=== PATIENT | male | born 1950 | race Caucasian/White ===

== ENCOUNTER 2016-09-20 20:41 | Inpatient (IN) | payer MEDICAID ==
[~2016-09-20] VITALS: Ht 177.8 cm; Wt 81.1 kg
[~2016-09-20 20:41] MED LIST: ASPI-496 PO; CARV6.252 PO; CLOP75TA22 PO; IBUP200T5 PO; LISI-167 PO; NITR0.4T SL; Will bring list DOS
[2016-09-20] MEDS ORDERED: FURO80TA77 PO (20:54)
[2016-09-20] MEDS ORDERED: SODIUM CHLORIDE 0.9% 1,000ML IVBOLUS ONE (21:30)
[2016-09-20] MEDS ORDERED: MORPHINE SULFATE 4 MG/ML, 1ML IV PRN (21:30)
[2016-09-20] MEDS ORDERED: LORazepam 2 MG/ML, 1ML ONE (21:44)
[2016-09-20] MEDS ORDERED: DIPHENHYDRAMINE 50 MG/ML, 1ML ONE (21:44)
[2016-09-20] MEDS ORDERED: HALOPERIDOL 5 MG/ML ONE (21:44)
[2016-09-20] MEDS ORDERED: LORazepam 2 MG/ML, 1ML IM ONE (22:00)
[2016-09-20] MEDS ORDERED: HALOPERIDOL 5 MG/ML IM ONE (22:00)
[2016-09-20] MEDS ORDERED: DIPHENHYDRAMINE 50 MG/ML, 1ML IM ONE (22:00)
[2016-09-20] MEDS ORDERED: VANCOMYCIN PER PHARMACY MC PRN (22:00)
[2016-09-20 22:06] LABS: DIFF TOTAL CELLS COUNTED 100 CELL DIFF
[2016-09-20 22:16] LABS: ASPARTATE AMINO TRANSFERASE 17 U/L (15-37); BLOOD UREA NITROGEN 99 mg/dL (7-18)
[2016-09-20] MEDS ORDERED: PHARMACOKINETIC CONSULTATION MC PRN (22:30)
[2016-09-20] MEDS ORDERED: VANCOMYCIN 1,400 MG in SODIUM CHLORIDE 0.9% 250 ML IV ONE (22:30)
[2016-09-20] MEDS ORDERED: PHARMACOKINETIC MONITORING MC PRN (22:30)
[2016-09-20 22:32] LABS: VERIFY COUNTS? YES
[2016-09-20] MEDS ORDERED: KETAMINE 10 MG/ML, 20ML IV ONE (23:00)
[2016-09-20] MEDS ORDERED: KETAMINE 10 MG/ML, 20ML ONE (23:03)
[2016-09-20] MEDS ORDERED: PIPERACILLIN/TAZO 3.375 GM in SODIUM CHLORIDE 0.9% 50 ML IV SCH (23:30)
[2016-09-20] MEDS ORDERED: INSULIN REGULAR 100 UNITS/ML, 3ML VIAL IVPush ONE (23:30)
[2016-09-20] MEDS ORDERED: CLINDAMYCIN PMX 900MG/50ML 50 ML IV SCH (23:30)
[2016-09-20] MEDS ORDERED: DEXTROSE 50%, 50ML SYRINGE IVPush ONE (23:30)
[2016-09-20] MEDS ORDERED: DEXTROSE 50%, 50ML VIAL ONE (23:41)
[2016-09-20] MEDS ORDERED: INSULIN REGULAR 100 UNITS/ML, 3ML VIAL ONE (23:41)
[2016-09-21] MEDS ORDERED: CLINDAMYCIN PMX 900MG/50ML 50 ML ONE (00:33)
[2016-09-21] MEDS ORDERED: BISACODYL 10 MG SUPP PR PRN (01:00)
[2016-09-21] MEDS ORDERED: ENALAPRILAT 1.25 MG/ML, 2ML IVPush PRN (01:00)
[2016-09-21] MEDS ORDERED: NITROGLYCERIN 0.4 MG BOTTLE (25 TABS) SL PRN (01:00)
[2016-09-21] MEDS ORDERED: ONDANSETRON 2MG/ML, 2ML IVPush PRN (01:00)
[2016-09-21] MEDS ORDERED: POLYETHYLENE GLYCOL 17 GM PACKET PO PRN (01:00)
[2016-09-21] MEDS ORDERED: DOCUSATE 100 MG CAPSULE PO PRN (01:00)
[2016-09-21] MEDS ORDERED: VANCOMYCIN PER PHARMACY MC PRN (01:30)
[2016-09-21 01:38] LABS: DAU SCREEN DISCLAIMER
[2016-09-21] MEDS: SODIUM CHLORIDE 0.9% 1,000 ML IV SCH ×4 (02:14→23:58)
[2016-09-21] MEDS ORDERED: SODIUM CHLORIDE 0.9% 1,000ML IVBOLUS ONE (03:00)
[2016-09-21] MEDS ORDERED: ALBUTEROL/IPRATROPIUM 2.5MG/0.5MG, 3 ML NPPB PRN (03:30)
[2016-09-21 04:05] VITALS: BP 116/53
[2016-09-21 04:36] VITALS: BP 116/53
[2016-09-21] MEDS: PIPERACILLIN/TAZO 2.25 GM in SODIUM CHLORIDE 0.9% 50 ML IV SCH ×3 (06:44→18:34)
[2016-09-21] MEDS ORDERED: PROPOFOL 10 MG/ML, 20ML ONE (08:04)
[2016-09-21] MEDS ORDERED: PHENYLEPHRINE 10 MG/ML ONE (08:04)
[2016-09-21] MEDS ORDERED: NEOSTIGMINE 1 MG/ML, 10ML ONE (08:04)
[2016-09-21] MEDS ORDERED: ROCURONIUM 10 MG/ML ONE (08:04)
[2016-09-21] MEDS ORDERED: ONDANSETRON 2MG/ML, 2ML ONE (08:04)
[2016-09-21] MEDS ORDERED: GLYCOPYRROLATE 0.2MG/1ML ONE (08:04)
[2016-09-21] MEDS ORDERED: FENTANYL PF 250 MCG/5ML ONE (08:04)
[2016-09-21] MEDS: FLUTICASONE/VILANTEROL 100-25MCG/INH INH SCH (09:00)
[2016-09-22] MEDS: PIPERACILLIN/TAZO 2.25 GM in SODIUM CHLORIDE 0.9% 50 ML IV SCH ×2 (00:05→05:49)
[2016-09-22] MEDS: OXYcodone IR 5MG TABLET PO PRN ×2 (00:05→16:59)
[2016-09-22 04:24] VITALS: BP 118/68
[2016-09-22 04:45] LABS: ASPARTATE AMINO TRANSFERASE 28 U/L (15-37); BLOOD UREA NITROGEN 39 mg/dL (7-18)
[2016-09-22] MEDS: SODIUM CHLORIDE 0.9% 1,000 ML IV SCH ×2 (05:00→15:31)
[2016-09-22] MEDS: ACETAMINOPHEN 325 MG TABLET PO PRN (05:49)
[2016-09-22] MEDS ORDERED: PIPERACILLIN/TAZO 3.375 GM in SODIUM CHLORIDE 0.9% 50 ML IV SCH (07:30)
[2016-09-22 08:10] VITALS: BP 109/63
[2016-09-22] MEDS: FLUTICASONE/VILANTEROL 100-25MCG/INH INH SCH (11:15)
[2016-09-22] MEDS ORDERED: NICOTINE 21 MG/24 HR PATCH.TD24 TD SCH (13:30)
[2016-09-22 13:46] VITALS: BP 100/54
[2016-09-22] MEDS: ENOXAPARIN 40 MG/0.4 ML SQ SCH (14:23)
[2016-09-22] MEDS: ERTAPENEM 1 GM in SODIUM CHLORIDE 0.9% 50 ML IV SCH (15:31)
[2016-09-22 20:32] VITALS: BP 116/59
[2016-09-22] MEDS ORDERED: VANCOMYCIN 1,400 MG in SODIUM CHLORIDE 0.9% 250 ML IV SCH (22:00)
[2016-09-23 04:16] VITALS: BP 126/62
[2016-09-23 05:08] LABS: BLOOD UREA NITROGEN 24 mg/dL (7-18)
[2016-09-23 08:05] VITALS: BP 115/76
[2016-09-23] MEDS: OXYcodone IR 5MG TABLET PO PRN ×3 (08:22→21:33)
[2016-09-23] MEDS: FLUTICASONE/VILANTEROL 100-25MCG/INH INH SCH (08:22)
[2016-09-23] MEDS ORDERED: CLOPIDOGREL 75 MG TABLET PO SCH (09:00)
[2016-09-23 12:30] VITALS: BP 121/70
[2016-09-23] MEDS: ENOXAPARIN 40 MG/0.4 ML SQ SCH (15:25)
[2016-09-23] MEDS: ERTAPENEM 1 GM in SODIUM CHLORIDE 0.9% 50 ML IV SCH (15:31)
[2016-09-23 19:28] VITALS: BP 133/68
[2016-09-24 01:10] VITALS: BP 126/62
[2016-09-24 06:17] LABS: BLOOD UREA NITROGEN 15 mg/dL (7-18)
[2016-09-24 10:12] VITALS: BP 116/64
[2016-09-24] MEDS: FLUTICASONE/VILANTEROL 100-25MCG/INH INH SCH (10:19)
[2016-09-24 14:10] VITALS: BP 118/67
[2016-09-24] MEDS: ENOXAPARIN 40 MG/0.4 ML SQ SCH (15:27)
[2016-09-24] MEDS: OXYcodone IR 5MG TABLET PO PRN (15:27)
[2016-09-24] MEDS: ERTAPENEM 1 GM in SODIUM CHLORIDE 0.9% 50 ML IV SCH (16:52)
[2016-09-24 19:28] VITALS: BP 125/59
[2016-09-25] MEDS: OXYcodone IR 5MG TABLET PO PRN ×4 (01:12→21:29)
[2016-09-25 01:13] VITALS: BP 111/58
[2016-09-25] MEDS: ACETAMINOPHEN 325 MG TABLET PO PRN (04:30)
[2016-09-25 05:18] LABS: BLOOD UREA NITROGEN 14 mg/dL (7-18)
[2016-09-25 07:46] VITALS: BP 122/66
[2016-09-25] MEDS: FLUTICASONE/VILANTEROL 100-25MCG/INH INH SCH (08:32)
[2016-09-25 12:59] VITALS: BP 132/60
[2016-09-25] MEDS: ENOXAPARIN 40 MG/0.4 ML SQ SCH (14:58)
[2016-09-25] MEDS: ERTAPENEM 1 GM in SODIUM CHLORIDE 0.9% 50 ML IV SCH (14:58)
[2016-09-25 18:30] VITALS: BP 113/65
[2016-09-25 23:14] VITALS: BP 132/72
[2016-09-26 07:38] VITALS: BP 123/73
[2016-09-26] MEDS: FLUTICASONE/VILANTEROL 100-25MCG/INH INH SCH (09:52)
[2016-09-26] MEDS: OXYcodone IR 5MG TABLET PO PRN ×3 (10:33→20:00)
[2016-09-26 14:15] VITALS: BP 141/68
[2016-09-26] MEDS: ENOXAPARIN 40 MG/0.4 ML SQ SCH (14:25)
[2016-09-26] MEDS: ERTAPENEM 1 GM in SODIUM CHLORIDE 0.9% 50 ML IV SCH (16:00)
[2016-09-26 18:26] VITALS: BP 133/58
[2016-09-27 00:09] VITALS: BP 105/56
[2016-09-27] MEDS: OXYcodone IR 5MG TABLET PO PRN ×5 (01:35→22:30)
[2016-09-27] MEDS: ACETAMINOPHEN 325 MG TABLET PO PRN (04:23)
[2016-09-27 06:39] VITALS: BP 131/56
[2016-09-27] MEDS: FLUTICASONE/VILANTEROL 100-25MCG/INH INH SCH (08:54)
[2016-09-27] MEDS: ENOXAPARIN 40 MG/0.4 ML SQ SCH (13:41)
[2016-09-27 14:30] VITALS: BP 118/61
[2016-09-27] MEDS: ERTAPENEM 1 GM in SODIUM CHLORIDE 0.9% 50 ML IV SCH (14:57)
[2016-09-27 19:47] VITALS: BP 129/68
[2016-09-28 03:15] VITALS: BP 111/53
[2016-09-28 06:35] VITALS: BP 135/65
[2016-09-28] MEDS: OXYcodone IR 5MG TABLET PO PRN ×4 (08:35→22:03)
[2016-09-28] MEDS: FLUTICASONE/VILANTEROL 100-25MCG/INH INH SCH (08:35)
[2016-09-28 12:44] VITALS: BP 140/62
[2016-09-28] MEDS: ENOXAPARIN 40 MG/0.4 ML SQ SCH (13:34)
[2016-09-28] MEDS: ERTAPENEM 1 GM in SODIUM CHLORIDE 0.9% 50 ML IV SCH (15:09)
[2016-09-28 19:08] VITALS: BP 116/64
[2016-09-29 01:19] VITALS: BP 132/67
[2016-09-29] MEDS: OXYcodone IR 5MG TABLET PO PRN ×4 (02:06→21:23)
[2016-09-29 07:47] VITALS: BP 144/49
[2016-09-29] MEDS: FLUTICASONE/VILANTEROL 100-25MCG/INH INH SCH (10:26)
[2016-09-29 13:20] VITALS: BP 124/60
[2016-09-29] MEDS: ERTAPENEM 1 GM in SODIUM CHLORIDE 0.9% 50 ML IV SCH (17:28)
[2016-09-29] MEDS: ENOXAPARIN 40 MG/0.4 ML SQ SCH (17:28)
[2016-09-29 19:20] VITALS: BP 132/67
[2016-09-30 01:18] VITALS: BP 126/64
[2016-09-30 07:50] VITALS: BP 104/59
[2016-09-30] MEDS: OXYcodone IR 5MG TABLET PO PRN ×3 (10:31→22:13)
[2016-09-30] MEDS: FLUTICASONE/VILANTEROL 100-25MCG/INH INH SCH (10:31)
[2016-09-30] MEDS: ERTAPENEM 1 GM in SODIUM CHLORIDE 0.9% 50 ML IV SCH (17:18)
[2016-09-30] MEDS: ENOXAPARIN 40 MG/0.4 ML SQ SCH (17:18)
[2016-09-30] MEDS ORDERED: SODIUM CHLORIDE 0.9% 500 ML IV ONE (19:00)
[2016-09-30 20:25] VITALS: BP 143/70
[2016-10-01 02:23] VITALS: BP 111/64
[2016-10-01] MEDS: OXYcodone IR 5MG TABLET PO PRN ×2 (06:04→14:12)
[2016-10-01 06:43] VITALS: BP 101/54
[2016-10-01] MEDS: FLUTICASONE/VILANTEROL 100-25MCG/INH INH SCH (09:34)
[2016-10-01 13:41] VITALS: BP 162/71
[2016-10-01] MEDS: ENOXAPARIN 40 MG/0.4 ML SQ SCH (14:12)
[2016-10-01] MEDS: ERTAPENEM 1 GM in SODIUM CHLORIDE 0.9% 50 ML IV SCH (18:21)
[2016-10-01 20:22] VITALS: BP 132/68
[2016-10-02 03:27] VITALS: BP 129/96
[2016-10-02 07:53] VITALS: BP 109/60
[2016-10-02] MEDS: FLUTICASONE/VILANTEROL 100-25MCG/INH INH SCH (09:00)
[2016-10-02 12:59] VITALS: BP 119/68
[2016-10-02] MEDS: AMPICILLIN 500 MG in SODIUM CHLORIDE 0.9% 50 ML IV SCH ×2 (14:15→18:15)
[2016-10-02] MEDS: ENOXAPARIN 40 MG/0.4 ML SQ SCH (14:30)
[2016-10-02] MEDS: LEVOFLOXACIN/PMX 500MG/100ML 100 ML IV SCH (15:50)
[2016-10-02] MEDS: OXYcodone IR 5MG TABLET PO PRN (18:15)
[2016-10-02 20:31] VITALS: BP 144/61
[2016-10-03] MEDS: AMPICILLIN 500 MG in SODIUM CHLORIDE 0.9% 50 ML IV SCH ×5 (00:14→23:46)
[2016-10-03 02:17] VITALS: BP 119/63
[2016-10-03 06:32] VITALS: BP 116/63
[2016-10-03] MEDS: FLUTICASONE/VILANTEROL 100-25MCG/INH INH SCH (07:28)
[2016-10-03] MEDS: OXYcodone IR 5MG TABLET PO PRN ×2 (08:09→18:30)
[2016-10-03] MEDS: morphine SULFATE 10 MG/ML, 1ML IVPush PRN (11:01)
[2016-10-03 13:24] VITALS: BP 146/71
[2016-10-03] MEDS: LEVOFLOXACIN/PMX 500MG/100ML 100 ML IV SCH (13:27)
[2016-10-03] MEDS: ENOXAPARIN 40 MG/0.4 ML SQ SCH (14:30)
[2016-10-03] MEDS: ASPIRIN 81 MG TABLET CHEW PO SCH (14:58)
[2016-10-03 19:22] VITALS: BP 108/57
[2016-10-04 01:41] VITALS: BP 139/63
[2016-10-04] MEDS: AMPICILLIN 500 MG in SODIUM CHLORIDE 0.9% 50 ML IV SCH ×2 (05:52→14:12)
[2016-10-04 08:00] VITALS: BP 135/78
[2016-10-04] MEDS: FLUTICASONE/VILANTEROL 100-25MCG/INH INH SCH (09:11)
[2016-10-04] MEDS: ASPIRIN 81 MG TABLET CHEW PO SCH (09:11)
[2016-10-04] MEDS: OXYcodone IR 5MG TABLET PO PRN ×3 (09:11→22:33)
[2016-10-04 13:42] VITALS: BP 146/79
[2016-10-04] MEDS: ENOXAPARIN 40 MG/0.4 ML SQ SCH (14:30)
[2016-10-04] MEDS: LEVOFLOXACIN/PMX 500MG/100ML 100 ML IV SCH (15:31)
[2016-10-04] MEDS: METRONIDAZOLE PMX 500MG/100ML 100 ML IV SCH (18:00)
[2016-10-04 19:48] VITALS: BP 130/68
[2016-10-05 01:52] VITALS: BP 144/72
[2016-10-05] MEDS: METRONIDAZOLE PMX 500MG/100ML 100 ML IV SCH (02:07)
[2016-10-05] MEDS: OXYcodone IR 5MG TABLET PO PRN ×4 (05:30→22:50)
[2016-10-05 07:51] VITALS: BP 116/72
[2016-10-05] MEDS: ASPIRIN 81 MG TABLET CHEW PO SCH (08:25)
[2016-10-05] MEDS: FLUTICASONE/VILANTEROL 100-25MCG/INH INH SCH (08:25)
[2016-10-05] MEDS: AMPICILLIN/SULBACTAM 3 GM in SODIUM CHLORIDE 0.9% 100 ML IV SCH ×3 (08:25→20:13)
[2016-10-05 08:28] LABS: BLOOD UREA NITROGEN 23 mg/dL (7-18)
[2016-10-05] MEDS: ENOXAPARIN 40 MG/0.4 ML SQ SCH (13:02)
[2016-10-05 14:54] VITALS: BP 117/60
[2016-10-05 19:37] VITALS: BP 124/61
[2016-10-06 01:17] VITALS: BP 131/63
[2016-10-06] MEDS: AMPICILLIN/SULBACTAM 3 GM in SODIUM CHLORIDE 0.9% 100 ML IV SCH ×4 (02:08→19:50)
[2016-10-06] MEDS: OXYcodone IR 5MG TABLET PO PRN ×3 (03:46→19:50)
[2016-10-06 06:55] VITALS: BP 125/69
[2016-10-06] MEDS: ASPIRIN 81 MG TABLET CHEW PO SCH (07:44)
[2016-10-06] MEDS: FLUTICASONE/VILANTEROL 100-25MCG/INH INH SCH (07:45)
[2016-10-06] MEDS: morphine SULFATE 10 MG/ML, 1ML IVPush PRN (13:27)
[2016-10-06] MEDS: ENOXAPARIN 40 MG/0.4 ML SQ SCH (14:25)
[2016-10-06 14:41] VITALS: BP 123/63
[2016-10-06 19:47] VITALS: BP 139/70
[2016-10-07] MEDS: OXYcodone IR 5MG TABLET PO PRN ×5 (00:19→21:03)
[2016-10-07 02:21] VITALS: BP 148/76
[2016-10-07] MEDS: AMPICILLIN/SULBACTAM 3 GM in SODIUM CHLORIDE 0.9% 100 ML IV SCH ×4 (02:38→20:00)
[2016-10-07 06:48] VITALS: BP 139/68
[2016-10-07] MEDS: ASPIRIN 81 MG TABLET CHEW PO SCH (07:29)
[2016-10-07] MEDS: FLUTICASONE/VILANTEROL 100-25MCG/INH INH SCH (07:29)
[2016-10-07 13:24] VITALS: BP 118/64
[2016-10-07] MEDS: ENOXAPARIN 40 MG/0.4 ML SQ SCH (13:52)
[2016-10-07 18:46] VITALS: BP 123/64
[2016-10-08 01:23] VITALS: BP 138/69
[2016-10-08] MEDS: OXYcodone IR 5MG TABLET PO PRN ×5 (01:28→22:55)
[2016-10-08] MEDS: AMPICILLIN/SULBACTAM 3 GM in SODIUM CHLORIDE 0.9% 100 ML IV SCH ×2 (01:28→07:16)
[2016-10-08] MEDS: ASPIRIN 81 MG TABLET CHEW PO SCH (07:15)
[2016-10-08] MEDS: FLUTICASONE/VILANTEROL 100-25MCG/INH INH SCH (07:16)
[2016-10-08 07:44] VITALS: BP 140/72
[2016-10-08] MEDS: morphine SULFATE 10 MG/ML, 1ML IVPush PRN (11:32)
[2016-10-08 14:20] VITALS: BP 108/53
[2016-10-08] MEDS: AMOXICILLIN/CLAV 500-125MG TABLET PO SCH ×2 (14:29→22:55)
[2016-10-08] MEDS: ENOXAPARIN 40 MG/0.4 ML SQ SCH (14:30)
[2016-10-08 19:20] VITALS: BP 128/70
[2016-10-09 01:00] VITALS: BP 130/70
[2016-10-09] MEDS: OXYcodone IR 5MG TABLET PO PRN ×4 (03:33→22:17)
[2016-10-09] MEDS: AMOXICILLIN/CLAV 500-125MG TABLET PO SCH ×3 (06:18→22:19)
[2016-10-09 07:29] VITALS: BP 125/71
[2016-10-09] MEDS: ASPIRIN 81 MG TABLET CHEW PO SCH (10:11)
[2016-10-09] MEDS: FLUTICASONE/VILANTEROL 100-25MCG/INH INH SCH (10:11)
[2016-10-09 13:33] VITALS: BP 147/66
[2016-10-09] MEDS: ENOXAPARIN 40 MG/0.4 ML SQ SCH ×2 (14:30→14:46)
[2016-10-09 20:01] VITALS: BP 142/66
[2016-10-10 01:07] VITALS: BP 134/66
[2016-10-10] MEDS: AMOXICILLIN/CLAV 500-125MG TABLET PO SCH ×3 (06:06→21:41)
[2016-10-10 07:39] VITALS: BP 135/60
[2016-10-10] MEDS: OXYcodone IR 5MG TABLET PO PRN ×2 (08:39→19:20)
[2016-10-10] MEDS: FLUTICASONE/VILANTEROL 100-25MCG/INH INH SCH (08:39)
[2016-10-10] MEDS: ASPIRIN 81 MG TABLET CHEW PO SCH (08:39)
[2016-10-10] MEDS: morphine SULFATE 10 MG/ML, 1ML IVPush PRN (11:48)
[2016-10-10 13:55] VITALS: BP 133/67
[2016-10-10] MEDS: ENOXAPARIN 40 MG/0.4 ML SQ SCH (14:28)
[2016-10-10 18:37] VITALS: BP 126/71
[2016-10-11] MEDS: OXYcodone IR 5MG TABLET PO PRN ×5 (00:10→19:34)
[2016-10-11 04:08] VITALS: BP 117/67
[2016-10-11] MEDS: AMOXICILLIN/CLAV 500-125MG TABLET PO SCH ×3 (05:45→22:05)
[2016-10-11 07:22] VITALS: BP 132/70
[2016-10-11] MEDS: FLUTICASONE/VILANTEROL 100-25MCG/INH INH SCH (07:50)
[2016-10-11] MEDS: ASPIRIN 81 MG TABLET CHEW PO SCH (07:51)
[2016-10-11 14:12] VITALS: BP 121/70
[2016-10-11] MEDS: ENOXAPARIN 40 MG/0.4 ML SQ SCH (14:30)
[2016-10-11 19:13] VITALS: BP 120/67
[2016-10-12 01:54] VITALS: BP 112/62
[2016-10-12] MEDS: AMOXICILLIN/CLAV 500-125MG TABLET PO SCH ×3 (05:24→22:06)
[2016-10-12] MEDS: OXYcodone IR 5MG TABLET PO PRN ×4 (05:24→21:12)
[2016-10-12 05:39] LABS: BLOOD UREA NITROGEN 31 mg/dL (7-18)
[2016-10-12 07:22] VITALS: BP 133/76
[2016-10-12] MEDS: ASPIRIN 81 MG TABLET CHEW PO SCH (08:14)
[2016-10-12] MEDS: POTASSIUM CHLORIDE 20 MEQ TAB.ER.PRT PO SCH (08:14)
[2016-10-12] MEDS: FLUTICASONE/VILANTEROL 100-25MCG/INH INH SCH (08:15)
[2016-10-12] MEDS ORDERED: FUROSEMIDE 80 MG TABLET PO SCH (09:00)
[2016-10-12] MEDS: ENOXAPARIN 40 MG/0.4 ML SQ SCH (14:16)
[2016-10-12] MEDS ORDERED: POTASSIUM CHLORIDE 20 MEQ TAB.ER.PRT PO ONE (15:00)
[2016-10-12 15:39] VITALS: BP 160/94
[2016-10-12 19:02] VITALS: BP 120/69
[2016-10-13 01:02] VITALS: BP 151/69
[2016-10-13 01:56] VITALS: BP 144/66
[2016-10-13] MEDS: AMOXICILLIN/CLAV 500-125MG TABLET PO SCH ×3 (06:05→21:30)
[2016-10-13 06:50] VITALS: BP 115/67
[2016-10-13] MEDS: ASPIRIN 81 MG TABLET CHEW PO SCH (08:45)
[2016-10-13] MEDS: POTASSIUM CHLORIDE 20 MEQ TAB.ER.PRT PO SCH (08:45)
[2016-10-13] MEDS: FUROSEMIDE 80 MG TABLET PO SCH (08:45)
[2016-10-13] MEDS: FLUTICASONE/VILANTEROL 100-25MCG/INH INH SCH (09:00)
[2016-10-13 09:24] LABS: BLOOD UREA NITROGEN 29 mg/dL (7-18)
[2016-10-13] MEDS: MORPHINE SULFATE 4 MG/ML, 1ML IVPush PRN (13:10)
[2016-10-13] MEDS: ENOXAPARIN 40 MG/0.4 ML SQ SCH (14:30)
[2016-10-13] MEDS: OXYcodone IR 5MG TABLET PO PRN ×2 (15:00→21:00)
[2016-10-13 18:30] VITALS: BP 132/67
[2016-10-14] MEDS: OXYcodone IR 5MG TABLET PO PRN ×4 (01:00→21:20)
[2016-10-14 01:02] VITALS: BP 151/69
[2016-10-14] MEDS: AMOXICILLIN/CLAV 500-125MG TABLET PO SCH ×3 (06:00→21:20)
[2016-10-14 07:00] VITALS: BP 152/77
[2016-10-14] MEDS ORDERED: FUROSEMIDE 40 MG TABLET ONE (08:08)
[2016-10-14] MEDS: FUROSEMIDE 80 MG TABLET PO SCH (08:15)
[2016-10-14] MEDS: ASPIRIN 81 MG TABLET CHEW PO SCH (08:15)
[2016-10-14] MEDS: POTASSIUM CHLORIDE 20 MEQ TAB.ER.PRT PO SCH (08:15)
[2016-10-14] MEDS: FLUTICASONE/VILANTEROL 100-25MCG/INH INH SCH (09:00)
[2016-10-14 12:35] VITALS: BP 147/60
[2016-10-14 12:40] VITALS: BP 147/60
[2016-10-14] MEDS: ENOXAPARIN 40 MG/0.4 ML SQ SCH (14:30)
[2016-10-14 18:37] VITALS: BP 139/71
[2016-10-15 01:21] VITALS: BP 150/77
[2016-10-15] MEDS: OXYcodone IR 5MG TABLET PO PRN ×3 (01:36→20:01)
[2016-10-15] MEDS: AMOXICILLIN/CLAV 500-125MG TABLET PO SCH ×2 (05:37→14:49)
[2016-10-15 06:58] VITALS: BP 114/74
[2016-10-15] MEDS: POTASSIUM CHLORIDE 20 MEQ TAB.ER.PRT PO SCH (09:28)
[2016-10-15] MEDS: FLUTICASONE/VILANTEROL 100-25MCG/INH INH SCH (09:28)
[2016-10-15] MEDS: FUROSEMIDE 80 MG TABLET PO SCH (09:28)
[2016-10-15] MEDS: ASPIRIN 81 MG TABLET CHEW PO SCH (09:28)
[2016-10-15 12:50] VITALS: BP 136/79
[2016-10-15] MEDS: MORPHINE SULFATE 4 MG/ML, 1ML IVPush PRN (13:10)
[2016-10-15] MEDS: ENOXAPARIN 40 MG/0.4 ML SQ SCH (14:49)
[2016-10-15 19:36] VITALS: BP 132/63
[2016-10-16] MEDS: OXYcodone IR 5MG TABLET PO PRN ×5 (01:44→21:22)
[2016-10-16 02:39] VITALS: BP 144/79
[2016-10-16 06:53] VITALS: BP 148/68
[2016-10-16] MEDS: ASPIRIN 81 MG TABLET CHEW PO SCH (09:45)
[2016-10-16] MEDS: FLUTICASONE/VILANTEROL 100-25MCG/INH INH SCH (09:45)
[2016-10-16] MEDS: POTASSIUM CHLORIDE 20 MEQ TAB.ER.PRT PO SCH (09:45)
[2016-10-16] MEDS: FUROSEMIDE 80 MG TABLET PO SCH (09:46)
[2016-10-16 12:15] VITALS: BP 165/69
[2016-10-16] MEDS: ENOXAPARIN 40 MG/0.4 ML SQ SCH (14:30)
[2016-10-16 19:37] VITALS: BP 115/53
[2016-10-17 01:58] VITALS: BP 127/70
[2016-10-17] MEDS: OXYcodone IR 5MG TABLET PO PRN ×4 (02:09→21:39)
[2016-10-17 08:30] VITALS: BP 131/64
[2016-10-17] MEDS: ASPIRIN 81 MG TABLET CHEW PO SCH (08:48)
[2016-10-17] MEDS: POTASSIUM CHLORIDE 20 MEQ TAB.ER.PRT PO SCH (08:48)
[2016-10-17] MEDS: FUROSEMIDE 80 MG TABLET PO SCH (08:48)
[2016-10-17] MEDS: FLUTICASONE/VILANTEROL 100-25MCG/INH INH SCH (08:49)
[2016-10-17] MEDS: MORPHINE SULFATE 4 MG/ML, 1ML IVPush PRN ×2 (12:10→17:51)
[2016-10-17] MEDS: ENOXAPARIN 40 MG/0.4 ML SQ SCH (14:24)
[2016-10-17 14:30] VITALS: BP 143/68
[2016-10-17 20:00] VITALS: BP 195/92
[2016-10-18 02:21] VITALS: BP 124/56
[2016-10-18] MEDS: OXYcodone IR 5MG TABLET PO PRN ×4 (05:56→21:39)
[2016-10-18 07:53] VITALS: BP 110/70
[2016-10-18] MEDS: ASPIRIN 81 MG TABLET CHEW PO SCH (10:42)
[2016-10-18] MEDS: POTASSIUM CHLORIDE 20 MEQ TAB.ER.PRT PO SCH (10:42)
[2016-10-18] MEDS: FUROSEMIDE 80 MG TABLET PO SCH (10:42)
[2016-10-18] MEDS: FLUTICASONE/VILANTEROL 100-25MCG/INH INH SCH (10:43)
[2016-10-18 14:29] VITALS: BP 132/68
[2016-10-18] MEDS: ENOXAPARIN 40 MG/0.4 ML SQ SCH (14:30)
[2016-10-18 18:53] VITALS: BP 128/65
[2016-10-19 02:08] VITALS: BP 150/77
[2016-10-19 06:30] VITALS: BP 137/71
[2016-10-19] MEDS: OXYcodone IR 5MG TABLET PO PRN ×4 (06:31→18:29)
[2016-10-19] MEDS: POTASSIUM CHLORIDE 20 MEQ TAB.ER.PRT PO SCH (08:24)
[2016-10-19] MEDS: FUROSEMIDE 80 MG TABLET PO SCH (08:24)
[2016-10-19] MEDS: ASPIRIN 81 MG TABLET CHEW PO SCH (08:24)
[2016-10-19] MEDS: FLUTICASONE/VILANTEROL 100-25MCG/INH INH SCH (09:17)
[2016-10-19 13:20] VITALS: BP 117/68
[2016-10-19] MEDS: ENOXAPARIN 40 MG/0.4 ML SQ SCH (14:02)
[2016-10-19 19:18] VITALS: BP 128/65
[2016-10-19] MEDS: MORPHINE SULFATE 4 MG/ML, 1ML IVPush PRN (21:53)
[2016-10-20 01:52] VITALS: BP 128/73
[2016-10-20] MEDS: OXYcodone IR 5MG TABLET PO PRN ×3 (05:07→21:43)
[2016-10-20 05:20] LABS: BLOOD UREA NITROGEN 34 mg/dL (7-18)
[2016-10-20 06:57] VITALS: BP 121/54
[2016-10-20] MEDS: POTASSIUM CHLORIDE 20 MEQ TAB.ER.PRT PO SCH (08:45)
[2016-10-20] MEDS: ASPIRIN 81 MG TABLET CHEW PO SCH (08:45)
[2016-10-20] MEDS: FLUTICASONE/VILANTEROL 100-25MCG/INH INH SCH (08:45)
[2016-10-20] MEDS: FUROSEMIDE 80 MG TABLET PO SCH (08:46)
[2016-10-20] MEDS: MORPHINE SULFATE 4 MG/ML, 1ML IVPush PRN ×3 (08:54→21:55)
[2016-10-20 12:15] VITALS: BP 134/71
[2016-10-20] MEDS: ENOXAPARIN 40 MG/0.4 ML SQ SCH (13:09)
[2016-10-20 19:26] VITALS: BP 150/76
[2016-10-21 01:14] VITALS: BP 114/72
[2016-10-21] MEDS: OXYcodone IR 5MG TABLET PO PRN ×4 (01:59→16:52)
[2016-10-21 07:10] VITALS: BP 155/79
[2016-10-21] MEDS: FUROSEMIDE 80 MG TABLET PO SCH (08:16)
[2016-10-21] MEDS: FLUTICASONE/VILANTEROL 100-25MCG/INH INH SCH (08:16)
[2016-10-21] MEDS: POTASSIUM CHLORIDE 20 MEQ TAB.ER.PRT PO SCH (08:16)
[2016-10-21] MEDS: ASPIRIN 81 MG TABLET CHEW PO SCH (08:16)
[2016-10-21 12:42] VITALS: BP 147/82
[2016-10-21] MEDS: ENOXAPARIN 40 MG/0.4 ML SQ SCH (14:09)
[2016-10-21 19:12] VITALS: BP 135/73
[2016-10-21] MEDS: MORPHINE SULFATE 4 MG/ML, 1ML IVPush PRN (21:09)
[2016-10-22 04:33] VITALS: BP 128/64
[2016-10-22 07:01] VITALS: BP 116/69
[2016-10-22] MEDS: OXYcodone IR 5MG TABLET PO PRN ×3 (08:39→22:14)
[2016-10-22] MEDS: FUROSEMIDE 80 MG TABLET PO SCH (08:39)
[2016-10-22] MEDS: ASPIRIN 81 MG TABLET CHEW PO SCH (08:39)
[2016-10-22] MEDS: POTASSIUM CHLORIDE 20 MEQ TAB.ER.PRT PO SCH (08:39)
[2016-10-22] MEDS: FLUTICASONE/VILANTEROL 100-25MCG/INH INH SCH (08:40)
[2016-10-22] MEDS: MORPHINE SULFATE 4 MG/ML, 1ML IVPush PRN ×2 (10:54→15:02)
[2016-10-22 12:42] VITALS: BP 148/84
[2016-10-22] MEDS: ENOXAPARIN 40 MG/0.4 ML SQ SCH (14:29)
[2016-10-22 20:08] VITALS: BP 150/69
[2016-10-23 00:39] VITALS: BP 152/88
[2016-10-23] MEDS: OXYcodone IR 5MG TABLET PO PRN ×4 (05:15→19:39)
[2016-10-23 07:00] VITALS: BP 161/75
[2016-10-23] MEDS: ASPIRIN 81 MG TABLET CHEW PO SCH (09:04)
[2016-10-23] MEDS: POTASSIUM CHLORIDE 20 MEQ TAB.ER.PRT PO SCH (09:04)
[2016-10-23] MEDS: FUROSEMIDE 80 MG TABLET PO SCH (09:05)
[2016-10-23] MEDS: FLUTICASONE/VILANTEROL 100-25MCG/INH INH SCH (09:05)
[2016-10-23 12:31] VITALS: BP 158/84
[2016-10-23] MEDS: ENOXAPARIN 40 MG/0.4 ML SQ SCH (15:24)
[2016-10-23 19:07] VITALS: BP 164/78
[2016-10-23] MEDS: MORPHINE SULFATE 4 MG/ML, 1ML IVPush PRN (23:12)
[2016-10-24 01:14] VITALS: BP 131/53
[2016-10-24 06:58] VITALS: BP 140/68
[2016-10-24] MEDS: FUROSEMIDE 80 MG TABLET PO SCH (07:42)
[2016-10-24] MEDS: ASPIRIN 81 MG TABLET CHEW PO SCH (07:42)
[2016-10-24] MEDS: OXYcodone IR 5MG TABLET PO PRN ×3 (07:42→21:15)
[2016-10-24] MEDS: FLUTICASONE/VILANTEROL 100-25MCG/INH INH SCH (07:42)
[2016-10-24] MEDS: POTASSIUM CHLORIDE 20 MEQ TAB.ER.PRT PO SCH (07:42)
[2016-10-24] MEDS ORDERED: POTA20PA PO (09:36)
[2016-10-24] MEDS ORDERED: FURO80TA3 PO (09:36)
[2016-10-24] MEDS ORDERED: CARV3.122 PO (09:36)
[2016-10-24] MEDS ORDERED: TRAM50TA2 PO (09:36)
[2016-10-24] MEDS: MORPHINE SULFATE 4 MG/ML, 1ML IVPush PRN (13:35)
[2016-10-24 14:29] VITALS: BP 140/73
[2016-10-24] MEDS: ENOXAPARIN 40 MG/0.4 ML SQ SCH (14:30)
[2016-10-24] MEDS: CARVEDILOL 3.125 MG TABLET PO SCH (15:56)
[2016-10-24 19:05] VITALS: BP 146/75
[2016-10-25] MEDS: OXYcodone IR 5MG TABLET PO PRN ×5 (01:28→22:31)
[2016-10-25 02:15] VITALS: BP 147/66
[2016-10-25] MEDS: CARVEDILOL 3.125 MG TABLET PO SCH ×2 (05:53→18:22)
[2016-10-25 07:41] VITALS: BP 134/74
[2016-10-25] MEDS: ASPIRIN 81 MG TABLET CHEW PO SCH (08:17)
[2016-10-25] MEDS: POTASSIUM CHLORIDE 20 MEQ TAB.ER.PRT PO SCH (08:18)
[2016-10-25] MEDS: FUROSEMIDE 80 MG TABLET PO SCH (08:18)
[2016-10-25] MEDS: FLUTICASONE/VILANTEROL 100-25MCG/INH INH SCH (08:18)
[2016-10-25] MEDS: ENOXAPARIN 40 MG/0.4 ML SQ SCH (14:30)
[2016-10-25 15:03] VITALS: BP 134/76
[2016-10-25 19:30] VITALS: BP 129/65
[2016-10-26 02:40] VITALS: BP 132/67
[2016-10-26] MEDS: CARVEDILOL 3.125 MG TABLET PO SCH ×2 (05:51→17:59)
[2016-10-26] MEDS: OXYcodone IR 5MG TABLET PO PRN ×4 (05:54→19:42)
[2016-10-26 07:35] VITALS: BP 127/73
[2016-10-26] MEDS: FUROSEMIDE 80 MG TABLET PO SCH (09:38)
[2016-10-26] MEDS: POTASSIUM CHLORIDE 20 MEQ TAB.ER.PRT PO SCH (09:38)
[2016-10-26] MEDS: ASPIRIN 81 MG TABLET CHEW PO SCH (09:38)
[2016-10-26] MEDS: FLUTICASONE/VILANTEROL 100-25MCG/INH INH SCH (09:38)
[2016-10-26] MEDS: ENOXAPARIN 40 MG/0.4 ML SQ SCH (14:30)
[2016-10-26 16:30] VITALS: BP 122/73
[2016-10-26 19:14] VITALS: BP 130/72
[2016-10-27 00:54] VITALS: BP 146/72
[2016-10-27] MEDS: CARVEDILOL 3.125 MG TABLET PO SCH ×2 (05:44→17:22)
[2016-10-27] MEDS: OXYcodone IR 5MG TABLET PO PRN ×3 (05:47→14:30)
[2016-10-27 07:32] VITALS: BP 126/77
[2016-10-27] MEDS: POTASSIUM CHLORIDE 20 MEQ TAB.ER.PRT PO SCH (09:43)
[2016-10-27] MEDS: FLUTICASONE/VILANTEROL 100-25MCG/INH INH SCH (09:43)
[2016-10-27] MEDS: ASPIRIN 81 MG TABLET CHEW PO SCH (09:43)
[2016-10-27] MEDS: FUROSEMIDE 80 MG TABLET PO SCH (09:44)
[2016-10-27 13:50] VITALS: BP 139/71
[2016-10-27] MEDS: ENOXAPARIN 40 MG/0.4 ML SQ SCH (14:30)
[2016-10-27] MEDS ORDERED: FLUT1AER INH (16:20)
== END 2016-10-27 17:41 | disposition home or self-care (01) | DRG 853 ==
LOC: ED 23:23 → EDIP 09-21 00:32 → CCU 09-21 01:53 → 3NW 09-22 07:54 → 3NE 10-01 15:46
PROVIDERS: ADMIT Internal Medicine; ATTEND Family Medicine
PROC: 0Y910ZZ Drainage of Left Buttock, Open Approach (ICD-10-PCS; 2016-09-21)
PROC: 0JB90ZZ Excision of Buttock Subcutaneous Tissue and Fascia, Open Approach (ICD-10-PCS; principal; 2016-09-21 08:00)
DX: A41.9 Sepsis, unspecified organism (principal); R65.21 Severe sepsis with septic shock; N17.0 Acute kidney failure with tubular necrosis; G93.41 Metabolic encephalopathy; I50.33 Acute on chronic diastolic (congestive) heart failure; L02.31 Cutaneous abscess of buttock; I11.0 Hypertensive heart disease with heart failure; J44.9 Chronic obstructive pulmonary disease, unspecified; I73.9 Peripheral vascular disease, unspecified; E87.5 Hyperkalemia; F15.10 Other stimulant abuse, uncomplicated; Z16.11 Resistance to penicillins; Z82.49 Family history of ischemic heart disease and other diseases of the circulatory system; Z87.891 Personal history of nicotine dependence; Z59.0 Homelessness
CPT/HCPCS: 10080; 36415; 70450; 72192; 80048; 80053; 80061; 80307; 81001; 82040; 82140; 82565; 82962; 83036; 83605; 83735; 84439; 84443; 85025; 87040; 87070; 87075; 87077; 87081; 87147; 87186; 87205; 93005; 93308; 93321; 93325; 96361; 96365; 96366; 96372; 96375; 99152; J0295; J1335; J1650; J1956; J2405; J2543; J2704; J2710; J3010; J3370; J3490; J0290; J1200; J1630; J2270; J2370; J7030; J7040; J7050

== ENCOUNTER → 2016-10-29 | Outpatient (CLI) | payer MEDICAID ==
[~2016-10-29] MED LIST changes: +CARV3.122 PO; +FLUT1AER INH; +FURO80TA3 PO; +FURO80TA77 PO; +POTA20PA PO; +TRAM50TA2 PO
== END | disposition home or self-care (01) ==
LOC: WOUND 10:25
PROVIDERS: ATTEND Internal Medicine
DX: T81.31XD Disruption of external operation (surgical) wound, not elsewhere classified, subsequent encounter (principal); J44.9 Chronic obstructive pulmonary disease, unspecified; Z86.73 Personal history of transient ischemic attack (TIA), and cerebral infarction without residual deficits; I11.0 Hypertensive heart disease with heart failure; I50.33 Acute on chronic diastolic (congestive) heart failure; I73.9 Peripheral vascular disease, unspecified; Y83.8 Other surgical procedures as the cause of abnormal reaction of the patient, or of later complication, without mention of misadventure at the time of the procedure; Z87.891 Personal history of nicotine dependence
CPT/HCPCS: 11042; 97605; 99215

== ENCOUNTER 2017-08-16 07:42 | Emergency (ER) | payer MEDICAID ==
[~2017-08-16] VITALS: Ht 177.8 cm; Wt 75.9 kg
[~2017-08-16 07:42] MED LIST changes: -CLOP75TA22 PO; +CLOP75TA52 PO; +IBUP-1484 PO; -IBUP200T5 PO
[2017-08-16 09:50] VITALS: BP 139/78
== END 2017-08-16 09:52 | disposition home or self-care (01) ==
LOC: ED 09:08
DX: J02.9 Acute pharyngitis, unspecified (principal); M72.0 Palmar fascial fibromatosis [Dupuytren]; I10 Essential (primary) hypertension; J44.9 Chronic obstructive pulmonary disease, unspecified; I71.4 Abdominal aortic aneurysm, without rupture; Z91.14 Patient's other noncompliance with medication regimen
CPT/HCPCS: 99284

== ENCOUNTER 2018-02-21 21:14 | Emergency (ER) | payer MEDICAID, OTHER ==
[~2018-02-21] VITALS: Ht 177.8 cm; Wt 75.9 kg
[~2018-02-21 21:14] MED LIST changes: -POTA20PA PO; +POTA20PA31 PO
[2018-02-21] MEDS ORDERED: LIDOCAINE-MPF 1%, 2ML ONE (21:31)
[2018-02-21 21:42] VITALS: BP 132/70
[2018-02-21] MEDS ORDERED: LIDOCAINE 1%, 10ML INFIL ONE (22:00)
[2018-02-21] MEDS ORDERED: BACITRACIN ZINC OINT 500U/GM, 0.9 GM ONE (22:18)
== END 2018-02-21 22:39 | disposition home or self-care (01) ==
LOC: ED 22:07
DX: S61.210A Laceration without foreign body of right index finger without damage to nail, initial encounter (principal); S00.81XA Abrasion of other part of head, initial encounter; I11.9 Hypertensive heart disease without heart failure; J44.9 Chronic obstructive pulmonary disease, unspecified; X58.XXXA Exposure to other specified factors, initial encounter; Y93.89 Activity, other specified; Y99.8 Other external cause status; Y92.89 Other specified places as the place of occurrence of the external cause
CPT/HCPCS: 12041

== ENCOUNTER 2019-06-22 10:17 | Emergency (ER) | payer MEDICAID, MEDICARE ==
[~2019-06-22] VITALS: Ht 177.8 cm; Wt 79.3 kg
[~2019-06-22 10:17] MED LIST changes: -IBUP-1484 PO; +IBUP-1902 PO; -NITR0.4T SL; +NITR0.4T41 SL
[2019-06-22 10:41] VITALS: BP 157/72
--- NOTE | 2019-06-22 11:59 | NUR ---
ERP TO THE BS WAITING ON RESULTS
--- NOTE | 2019-06-22 12:12 | NUR ---
dr luna spoke with dr white
--- NOTE | 2019-06-22 12:56 | NUR ---
PT WALKED OUT OF ER, STATES THAT HE WANTS TO SMOKE. ERP AT SIDE, PT NOT REDIRECTABLE.
== END 2019-06-22 13:10 | disposition left against medical advice (07) ==
LOC: ED 12:30
DX: H53.121 Transient visual loss, right eye (principal); Z59.0 Homelessness; J44.9 Chronic obstructive pulmonary disease, unspecified; I10 Essential (primary) hypertension; F17.200 Nicotine dependence, unspecified, uncomplicated
CPT/HCPCS: 70450; 93005; 93880; 99285

== ENCOUNTER 2019-11-18 06:32 | Emergency (ER) | payer MEDICARE, MEDICAID ==
[~2019-11-18] VITALS: Ht 177.8 cm; Wt 73.0 kg
[2019-11-18 06:38] VITALS: BP 107/68
--- NOTE | 2019-11-18 07:02 | NUR ---
PT STATES UNABLE TO PRODUCE URINE SAMPLE, STATES "I HAVE NO FLUIDS GIMME SOME FUCKING WATER" PT GIVEN WATER PER PT REQUEST/ERMD UPDATED
[2019-11-18 07:43] LABS: AMPHETAMINE SCREEN, URINE Positive (Negative); CANNABINOID SCREEN, URINE Negative (Negative); COCAINE SCREEN, URINE Negative (Negative); METHADONE SCREEN, URINE Negative (Negative)
[2019-11-18 07:51] LABS: BARBITURATE SCREEN, URINE Negative (Negative); BENZODIAZEPINE SCREEN, URINE Negative (Negative); OPIATE SCREEN, URINE Negative (Negative)
[2019-11-18 08:09] LABS: BASOPHILS # (AUTO) 0.09 x10^3/uL (0-0.1); BASOPHILS % (AUTO) 2 % (0-1); EOSINOPHILS # (AUTO) 0.36 x10^3/uL (0-0.4); EOSINOPHILS % (AUTO) 6 % (1-7); LYMPHOCYTES # (AUTO) 1.57 x10^3/uL (1-3.4); LYMPHOCYTES % (AUTO) 27 % (22-44); MD NO; MEAN CORPUSCULAR HEMOGLOBIN 28.4 pg (27.5-34.5); MEAN CORPUSCULAR HGB CONC 32.4 g/dL (33.2-36.2); MEAN PLATELET VOLUME 8.3 fL (7.4-10.4); MONOCYTES # (AUTO) 0.58 x10^3/uL (0.2-0.8); MONOCYTES % (AUTO) 10 % (2-9); NEUTROPHILS # (AUTO) 3.24 x10^3/uL (1.8-6.8); NEUTROPHILS % (AUTO) 56 % (42-75); PLATELET COUNT 221 x10^3/uL (130-400); RED BLOOD COUNT 5.73 x10^6/uL (4.38-5.82); RED CELL DISTRIBUTION WIDTH 15.4 % (9.4-14.8)
[2019-11-18 08:13] LABS: ALANINE AMINOTRANSFERASE 33 U/L (12-78); ALBUMIN 3.9 g/dL (3.4-5.0); ANION GAP 8 mmol/L (5-15); CALCIUM 9.4 mg/dL (8.5-10.1); CHLORIDE 106 mmol/L (98-107); CREATININE 3.49 mg/dL (0.7-1.3)
[2019-11-18 08:27] LABS: ALKALINE PHOSPHATASE 72 U/L (45-117); BILIRUBIN,TOTAL 0.4 mg/dL (0.2-1.0)
[2019-11-18 08:28] LABS: SALICYLATE LEVEL < 1.7 mg/dL (2.8-20.0); TOTAL PROTEIN 7.4 g/dL (6.4-8.2)
--- NOTE | 2019-11-18 08:30 | NUR ---
PT RESTING IN RM IN [place] AT THIS TIME, PT NOT WANTING TO GET IN GOWN, REPEAT VITALS AT THIS TIME. PT DID AMBULATE TO BR WITH STEADY GAIT, UDS COLLECTED AND SENT TO LAB
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
[2019-11-18] MEDS ORDERED: SODIUM CHLORIDE 0.9% 1,000 ML IV ONE (09:17)
[2019-11-18] MEDS ORDERED: SODIUM CHLORIDE FLUSH 10ML SYR IVF ONE (09:30)
[2019-11-18] MEDS ORDERED: NICOTINE 14MG/24 HR PATCH.TD24 TD ONE (09:30)
[2019-11-18] MEDS ORDERED: NICOTINE 14MG/24 HR PATCH.TD24 ONE (09:33)
--- NOTE | 2019-11-18 09:53 | NUR ---
PER ANNI, PT TO BE [facility] ADMIT, DX RENAL FAILURE. PT EXPLAINED POC. PT CURRENTLY REFUSING ADMIT AND REFUSING IV. PT BECAME ANGRY. AGGITATED. PT REFUSING ADMIT, STATES "IM NOT GOING TO FUCKING STAY HERE." PT WALKED TO EXIT.
--- NOTE | 2019-11-18 09:58 | NUR ---
PT REFUSING ALL VITALS.
== END 2019-11-18 10:00 | disposition left against medical advice (07) ==
LOC: ED 06:51
DX: N17.9 Acute kidney failure, unspecified (principal); F98.9 Unspecified behavioral and emotional disorders with onset usually occurring in childhood and adolescence; I11.9 Hypertensive heart disease without heart failure; J44.9 Chronic obstructive pulmonary disease, unspecified; F17.200 Nicotine dependence, unspecified, uncomplicated
CPT/HCPCS: 36415; 80053; 80307; 85025; 99283

== ENCOUNTER 2019-11-21 08:29 | Emergency (ER) | payer MEDICARE ==
[~2019-11-21] VITALS: Ht 175.3 cm; Wt 74.8 kg
[2019-11-21 08:38] VITALS: BP 135/68
--- NOTE | 2019-11-21 08:56 | NUR ---
AMA form signed and handed to registration. AMA form placed in medical records basket.
== END 2019-11-21 08:59 | disposition left against medical advice (07) ==
LOC: ED 08:50
DX: N23 Unspecified renal colic (principal); Z53.21 Procedure and treatment not carried out due to patient leaving prior to being seen by health care provider

== ENCOUNTER 2020-11-26 04:38 | Emergency (ER) | payer MEDICAID, MEDICARE ==
[~2020-11-26] VITALS: Ht 175.3 cm; Wt 70.3 kg
[2020-11-26 04:43] VITALS: BP 159/76
--- NOTE | 2020-11-26 06:37 | NUR ---
LEFT WITHOUT DC PAPERWORK
== END 2020-11-26 06:40 ==
LOC: ED 04:50
DX: J44.9 Chronic obstructive pulmonary disease, unspecified (principal); F17.210 Nicotine dependence, cigarettes, uncomplicated; Z72.9 Problem related to lifestyle, unspecified; Z59.0 Homelessness; I10 Essential (primary) hypertension; E11.9 Type 2 diabetes mellitus without complications
CPT/HCPCS: 93005; 99283